=== PATIENT | female | born 1995 | race Caucasian/White ===

== ENCOUNTER 2020-11-20 17:30 | Emergency (ER) ==
[2020-11-20 18:36] LABS: HIV (1/2) Antibody/Antigen Non-Reactive (NonReactive); HIV 1/2 INDEX 0.12 S/CO (<1.00); Hep C IgG Ab Non-Reactive (NonReactive); Hep C Index 0.13 S/CO (0-0.79)
[2020-11-20 18:56] LABS: HBSAB Concentration 73.07 mIU/mL; Hep B Surf AB Reactive (NonReactive)
== END 2020-11-20 18:36 | disposition home or self-care (01) ==
LOC: ERS 17:30 → LAB 17:30 → ERS 17:30 → EDSTATUS 19:37
DX: S60.410A Abrasion of right index finger, initial encounter (principal); W26.8XXA Contact with other sharp object(s), not elsewhere classified, initial encounter
CPT/HCPCS: 86706; 86803; 87389; 99282

== ENCOUNTER 2022-02-06 01:50 | Emergency (ER) | payer BC ==
[2022-02-06] MEDS ORDERED: Magnesium 2 GM/50 ML BAG (IN WATER) ONE (02:40)
[2022-02-06] MEDS ORDERED: cefTRIAXone\\ROCEPHIN 2 GM VIAL ONE (02:40)
[2022-02-06] MEDS ORDERED: Dexamethasone 10 MG/ML VIAL ONE (02:40)
[2022-02-06] MEDS ORDERED: Albuterol Sulfate 2.5 mg/0.5 ml Neb ONE ×2 (02:40→02:41)
[2022-02-06 02:47] LABS: #Basophils 0.1 thou/uL (0.0-0.2); #Eosinphils 0.8 thou/uL (0.0-0.7); #Lymphocytes 2.8 thou/uL (1.20-3.40); #Monocytes 0.7 thou/uL (0.11-0.59); %Basophils 1.6 % (0.0-1.0); %Eosinophils 8.2 % (0.0-10.0); %Lymphocytes 29.7 % (21.0-51.0); %Monocytes 7.1 % (0.0-10.0); %Neutrophils 53.4 % (42.0-75.0); Hemoglobin 13.8 g/dL (12.0-16.0); Mean Corpuscular HGB CONC 34.7 g/dL (32.0-36.0); Mean Corpuscular Hemoglobin 34.3 pg (27.0-31.0); Mean Corpuscular Volume 98.8 fl (78.0-98.0); Mean Platelet Volume 8.4 fL (7.4-10.4); Platelet Count 277 10x3/uL (130-400); RBC Distribution Width 12.3 % (11.5-14.5); Red Blood Cell (RBC) Count 4.01 mill/uL (4.20-5.40); White Blood Cell (WBC) Count 9.4 10x3/uL (4.8-10.8)
[2022-02-06 03:06] LABS: ALT (SGPT) 12 U/L (8-55); AST (SGOT) 15 U/L (5-34); Albumin 4.7 g/dL (3.5-5.0); Alkaline Phosphatase 48 U/L (40-110); Anion Gap 15 mmol/L (10-20); BUN (Urea Nitrogen) 11 mg/dL (7.0-18.7); Bilirubin, Total 0.7 mg/dL (0.2-1.2); Calc. Creatinine Clearance 0 mL/min (70-130); Calcium 9.9 mg/dL (7.8-10.44); Carbon Dioxide 24 mmol/L (22-29); Chloride 104 mmol/L (98-107); Estimated GFR 85; Globulin 3.3 g/dL (2.4-3.5); Glucose 89 mg/dL (70-105); Potassium 3.8 mmol/L (3.5-5.1); Sodium 139 mmol/L (136-145)
[2022-02-06 03:54] LABS: SARS-CoV-2 NAA Rapid Test Not Detected (NotDetected)
== END 2022-02-06 03:33 | disposition home or self-care (01) ==
LOC: ERS 01:50
DX: J18.8 Other pneumonia, unspecified organism (principal); Z20.822 Contact with and (suspected) exposure to COVID-19
CPT/HCPCS: 71045; 80053; 85025; 85379; 96365; 96375; J0696; J1100; J3475; J7611; J7620; U0002

== ENCOUNTER 2023-09-11 09:11 | Emergency (ER) | payer BC, OTHER ==
[2023-09-11 09:49] LABS: #Basophils 0.08 10x3/uL (0.0-0.2); %Basophils 0.7 % (0.0-1.0); %Eosinophils 4.6 % (0.0-10.0); %Lymphocytes 13.1 % (21.0-51.0); %Monocytes 5.4 % (0.0-10.0); %Neutrophils 75.8 % (42.0-75.0); Hematocrit 41.2 % (36.0-47.0); Mean Corpuscular Hemoglobin 31.7 pg (27.0-31.0); Mean Corpuscular Volume 93.2 fL (78.0-98.0); Mean Platelet Volume 10.9 fL (7.4-10.4); Platelet Count 273 10x3/uL (130-400); RBC Distribution Width 12.6 % (11.5-14.5); Red Blood Cell (RBC) Count 4.42 mill/uL (4.20-5.40)
[2023-09-11 10:04] LABS: ALT (SGPT) 10 U/L (8-55); AST (SGOT) 12 U/L (5-34); Albumin 3.8 g/dL (3.5-5.0); Alkaline Phosphatase 59 U/L (40-110); Anion Gap 16 mmol/L (10-20); BUN (Urea Nitrogen) 8 mg/dL (7.0-18.7); Bilirubin, Total 0.6 mg/dL (0.2-1.2); Calc. Creatinine Clearance 0 mL/min (70-130); Calcium 8.9 mg/dL (7.8-10.44); Carbon Dioxide 19 mmol/L (22-29); Chloride 106 mmol/L (98-107); Estimated GFR 98; Globulin 3.9 g/dL (2.4-3.5); Glucose 99 mg/dL (70-105); Potassium 3.8 mmol/L (3.5-5.1); Protein, Total 7.7 g/dL (6.0-8.3); Sodium 137 mmol/L (136-145)
[2023-09-11] MEDS ORDERED: Morphine 4 MG/ML VIAL ONE (11:26)
[2023-09-11] MEDS ORDERED: Ondansetron PF 4 MG/2 ML Vial ONE (11:50)
== END 2023-09-11 12:35 | disposition home or self-care (01) ==
LOC: ERS 09:11
DX: L05.01 Pilonidal cyst with abscess (principal)
CPT/HCPCS: 36415; 80053; 83605; 85025; 87040; 96374; 96375; J2270; J2405

== ENCOUNTER 2024-02-01 10:10 | Outpatient (CLI) | payer BC | END 2024-02-01 10:11 | disposition home or self-care (01) | LOC: BICRAD 10:10 | PROVIDERS: ATTEND Nurse Practitioner Family | DX: R05.1 Acute cough (principal); R06.2 Wheezing | CPT/HCPCS: 71046 ==